=== PATIENT | male | born 1965 | race Caucasian/White ===

== ENCOUNTER 2021-08-23 09:57 | Emergency (ER) | payer OTHER ==
[~2021-08-23] VITALS: Ht 182.9 cm; Wt 88.5 kg
[~2021-08-23 09:57] MED LIST: BACTRIM DS TAB1 EACH PO; NORCO 5-325 TA1 EACH PO; PERCOCET 5-3251 EACH PO; PHENERGAN 25 MG25 M1 PO; PRILOSEC40 MG PO
[2021-08-23 10:17] VITALS: BP 170/99
[2021-08-23] MEDS ORDERED: IBUPROFEN 800800 MG PO (11:49)
== END 2021-08-23 12:05 | disposition home or self-care (01) ==
LOC: ER 09:57
DX: M25.512 Pain in left shoulder (principal); Z79.891 Long term (current) use of opiate analgesic; Z79.1 Long term (current) use of non-steroidal anti-inflammatories (NSAID); Z79.899 Other long term (current) drug therapy